=== PATIENT | male | born 1985 | race Caucasian/White ===

== ENCOUNTER 2019-10-30 20:09 | Emergency (ER) | payer SELFPAY ==
[~2019-10-30] VITALS: Ht 182.8 cm; Wt 77.1 kg
[2019-10-30] MEDS ORDERED: RX-ALBUTEROL INHALER (PROAIR) 8.5 GM IH ONE (20:30)
[2019-10-30] MEDS ORDERED: DEXAMETHASONE 10 MG/ML (DECADRON) 1 ML VIAL IM ONE (20:30)
--- NOTE | 2019-10-30 20:40 | ED EENT ---
History of Present Illness General Chief Complaint: Oral/Throat Problems Stated Complaint: THROAT PAIN, AMMONIA EXPOSURE, SOB Nursing Triage Note: pt amb to rm 10 with complaint of sore throat after being exposed to "ammonia like smell" when changing a cat litter box. states this occured two days ago and has had a sore throat and difficulty eating since. states he has been taking amoxicillin for broken teeth. History of Present Illness Date Seen by Provider: Oct 30, 2019 Time Seen by Provider: 20:20 Initial Comments 34 -year-old male reports that he was assisting his children in emptying litter box when he became short of breath from inhaling the ammonia smell at 1500. He reports that there was a lot dry, hard litter from urine in the bottom. He was in his living room when this occurred. He denies any fever or shortness of air at this time he is not coughing. He states his throat is still irritated, but he can swallow and breath without difficulty. Requesting work note. Timing/Duration: abrupt Prearrival Treatment: no prearrival treatment Associated Symptoms: denies symptoms Allergies and Home Medications Allergies Coded Allergies: No Known Drug Allergies (Unverified , 10/30/19) Patient Home Medication List Home Medication List Reviewed: Yes Review of Systems Review of Systems Constitutional: no symptoms reported, see HPI Throat: see HPI, other Respiratory: see HPI (irritation), cough (nonproductive); No short of breath All Other Systems Reviewed Negative Unless Noted: Yes Past Himjqbt-Sfgelv-Dkcrki Hx Past Med/Social Hx: Reviewed Nursing Past Med/Soc Hx Patient Social History Alcohol Use: Occasionally Uses Recreational Drug Use: No Smoking Status: Former Smoker Type Used: Cigarettes, Smokeless Tobacco Recent Foreign Travel: No Contact w/Someone Who Travel: No Recent Infectious Disease Expo: No Recent Hopitalizations: No Immunizations Up To Date Tetanus Booster (TDap): Unknown PED Vaccines UTD: Yes Seasonal Allergies Seasonal Allergies: No Past Medical History Surgeries: Yes Respiratory: No Cardiac: No Neurological: No Genitourinary: No Gastrointestinal: No Musculoskeletal: No Endocrine: No HEENT: No Cancer: No Psychosocial: No Integumentary: No Blood Disorders: No Physical Exam Vital Signs Vital Signs - First Documented 10/30/19 20:14 Temp 36.8 Pulse 87 Resp 16 B/P (MAP) 119/75 (90) Pulse Ox 98 O2 Delivery Room Air Height, Weight, BMI Height: '" Weight: lbs. oz. kg; 23.00 BMI Method: General Appearance: WD/WN, no apparent distress Eyes: bilateral eye normal inspection, bilateral eye PERRL, bilateral eye EOMI Ears: bilateral ear auricle normal, bilateral ear canal normal, bilateral ear TM normal Nose: normal inspection; No discharge Mouth/Throat: normal mouth inspection, pharynx normal Neck: non-tender, full range of motion, supple, normal inspection Cardiovascular: normal peripheral pulses, regular rate, rhythm Respiratory: chest non-tender, lungs clear, normal breath sounds Neurologic/Psychiatric: no motor/sensory deficits, alert, normal mood/affect, oriented x 3 Progress/Results/Core Measures Results/Orders My Orders Orders - PRABHJOT MCKINNEY Rx-Albuterol Inhaler (Rx-Proair) (10/30/19 20:30) Dexamethasone Injection (Decadron Inject (10/30/19 20:30) Medications Given in ED Current Medications Medications Dose Ordered Sig/Holly Route Start Time Stop Time Status Last Admin Dose Admin Albuterol Sulfate 1 gm ONCE ONCE IH 10/30/19 20:30 10/30/19 20:31 DC 10/30/19 20:37 1 GM Dexamethasone Sodium Phosphate 10 mg ONCE ONCE IM 10/30/19 20:30 10/30/19 20:31 DC 10/30/19 20:37 10 MG Vital Signs/I&O 10/30/19 20:14 Temp 36.8 Pulse 87 Resp 16 B/P (MAP) 119/75 (90) Pulse Ox 98 O2 Delivery Room Air Blood Pressure Mean: 90 Departure Impression Primary Impression: Throat irritation Disposition: 01 HOME, SELF-CARE Condition: Improved Departure-Patient Inst. Decision time for Depature: 20:30 Referrals: [facility] [place] NO,LOCAL PHYSICIAN (PCP) Primary Care Physician Patient Instructions: Sore Throat, Adult (DC) Add. Discharge Instructions: Use inhaler 2 puffs every 4 hours. Rinse throat and mouth with warm water and salt every 2-3 hours. Empty the litter box outside or with windows open. Follow-up with your primary care provider if symptoms are not improving or worsen. Return to emergency department for new, urgent health care needs. All discharge instructions reviewed with patient and/or family. Voiced understanding. PRABHJOT MCKINNEY Oct 30, 2019 20:40
[2019-10-30 20:45] VITALS: BP 119/75
== END 2019-10-30 20:45 | disposition home or self-care (01) ==
LOC: ER 20:12
DX: J39.2 Other diseases of pharynx (principal); Z87.891 Personal history of nicotine dependence
CPT/HCPCS: 96372; 99284

== ENCOUNTER 2021-03-10 09:59 | Emergency (ER) | payer SELFPAY ==
[~2021-03-10] VITALS: Ht 180 cm; Wt 72.5 kg
--- NOTE | 2021-03-10 10:30 | ED Abdominal Pain ---
General Chief Complaint: General Problems/Pain Stated Complaint: RLQ PAIN Nursing Triage Note: Pt ambulatory to triage with visitor. Pt reports having anxiety for the past 4 days, intermittent, reports hands currently clammy. Pt reports having muscle pain, describes as numbness and tingling to RUQ area. Pt denies n/v/d or other GI symptoms. Pt reports hx of anxiety, was on meds approx 10 years ago. Source of Information: Patient Exam Limitations: No Limitations (THONY NARANJO) History of Present Illness Date Seen by Provider: Mar 10, 2021 Time Seen by Provider: 10:10 Initial Comments Pt presents to ED via private conveyance with complaint of abd pain. He states t hat the pain began 2 days ago at work, sitting, with no inciting factors. He localizes it to his RUQ, denies radiation, and describes it as numb/tingling, denies prior occurrence of similar pain. Denies N/V, SOB, chest pain. Last BM today prior to arrival without issues. Denies hematuria, dysuria. Timing/Duration: 1-2 Days Severity/Quality: Mild, Other (pt describes pain as numb/tingling) Location: RUQ Radiation: No Radiation Activities at Onset: Other (sitting at work) Modifying Factors: Improves With Palpation Associated Symptoms: No Back Pain, No Chest Pain, No Fever/Chills, No Headache, No Heartburn, No Nausea/Vomiting, No Shortness of Air (THONY NARANJO STUDENT) Allergies and Home Medications Allergies Coded Allergies: No Known Drug Allergies (Unverified , 10/30/19) Patient Home Medication List Home Medication List Reviewed: Yes (THONY NARANJO) Review of Systems Review of Systems Constitutional: No chills, No fever Respiratory: Denies Cough, Denies Shortness of Air Cardiovascular: Denies Chest Pain, Denies Edema, Denies Lightheadedness Gastrointestinal: Denies Abdomen Distended; Abdominal Pain (RUQ); Denies Blood Streaked Stools, Denies Constipated, Denies Diarrhea, Denies Nausea Genitourinary: Denies Burning, Denies Frequency, Denies Flank Pain, Denies Hematuria Musculoskeletal: No back pain, No joint pain Skin: No change in color, No change in hair/nails Psychiatric/Neurological: Denies Headache; Numbness (RUQ), Tingling (RUQ) (THONY NARANJO) All Other Systems Reviewed Negative Unless Noted: Yes (THONY NARANJO) Past Otsqwqg-Jydphp-Pzbphf Hx Patient Social History Tobacco Use?: Yes Substance use?: Yes Substance type: Marijuana Alcohol Use?: No Pt feels they are or have been: No (THONY NARANJO) Immunizations Up To Date Tetanus Booster (TDap): Unknown PED Vaccines UTD: Yes (THONY NARANJO) Seasonal Allergies Seasonal Allergies: No (THONY NARANJO) Past Medical History Surgeries: Yes Respiratory: No Cardiac: No Neurological: No Genitourinary: No Gastrointestinal: No Musculoskeletal: No Endocrine: No HEENT: No Cancer: No Psychosocial: No Integumentary: No Blood Disorders: No (THONY NARANJO) Physical Exam Vital Signs Vital Signs - First Documented 03/10/21 10:04 Temp 36.1 Pulse 81 Resp 20 B/P (MAP) 137/90 (106) Pulse Ox 99 O2 Delivery Room Air (JOSÉ ORTEGA) Vital Signs Capillary Refill : Less Than 3 Seconds (THONY NARANJO) Height/Weight/BMI Height: '" Weight: lbs. oz. kg; 22.00 BMI Method: General Appearance: WD/WN, no apparent distress HEENT: PERRL/EOMI, normal ENT inspection, pharynx normal Neck: non-tender, full range of motion, supple, normal inspection Respiratory: chest non-tender, lungs clear, normal breath sounds, no respirator y distress, no accessory muscle use Cardiovascular: normal peripheral pulses, regular rate, rhythm, no edema, no murmur Peripheral Pulses: 2+ Dorsalis Pedis (R), 2+ Left Dors-Pedis (L), 2+ Radial Pulses (R), 2+ Radial Pulses (L) Gastrointestinal: normal bowel sounds, soft; No distended, No guarding, No rebound; tenderness (mild tenderness to palpation RUQ, negative [place] sign/rebound tenderness/heel-strike) Rectal: deferred Extremities: normal range of motion, non-tender, normal inspection, normal capillary refill Back: normal inspection, no CVA tenderness, no vertebral tenderness Neurologic/Psychiatric: no motor/sensory deficits, alert, normal mood/affect, oriented x 3 Skin: normal color, warm/dry, diaphoresis (hands) Lymphatic: no adenopathy (THONY NARANJO MED STUDENT) Progress/Results/Core Measures Results/Orders Lab Results Laboratory Tests Test 03/10/21 10:25 03/10/21 11:14 Range/Units White Blood Count 4.4 4.3-11.0 10^3/uL Red Blood Count 5.39 4.30-5.52 10^6/uL Hemoglobin 15.9 13.3-17.7 g/dL Hematocrit 47 40-54 % Mean Corpuscular Volume 87 80-99 fL Mean Corpuscular Hemoglobin 30 25-34 pg Mean Corpuscular Hemoglobin Concent 34 32-36 g/dL Red Cell Distribution Width 11.8 10.0-14.5 % Platelet Count 327 130-400 10^3/uL Mean Platelet Volume 9.3 9.0-12.2 fL Immature Granulocyte % (Auto) 0 % Neutrophils (%) (Auto) 50 42-75 % Lymphocytes (%) (Auto) 38 12-44 % Monocytes (%) (Auto) 10 0-12 % Eosinophils (%) (Auto) 1 0-10 % Basophils (%) (Auto) 1 0-10 % Neutrophils # (Auto) 2.2 1.8-7.8 10^3/uL Lymphocytes # (Auto) 1.7 1.0-4.0 10^3/uL Monocytes # (Auto) 0.5 0.0-1.0 10^3/uL Eosinophils # (Auto) 0.0 0.0-0.3 10^3/uL Basophils # (Auto) 0.0 0.0-0.1 10^3/uL Immature Granulocyte # (Auto) 0.0 0.0-0.1 10^3/uL Sodium Level 138 135-145 MMOL/L Potassium Level 4.1 3.6-5.0 MMOL/L Chloride Level 103 98-107 MMOL/L Carbon Dioxide Level 26 21-32 MMOL/L Anion Gap 9 5-14 MMOL/L Blood Urea Nitrogen 8 7-18 MG/DL Creatinine 1.06 0.60-1.30 MG/DL Estimat Glomerular Filtration Rate 80 BUN/Creatinine Ratio 8 Glucose Level 95 70-105 MG/DL Calcium Level 9.7 8.5-10.1 MG/DL Corrected Calcium 9.3 8.5-10.1 MG/DL Total Bilirubin 1.1 H 0.1-1.0 MG/DL Aspartate Amino Transf (AST/SGOT) 14 5-34 U/L Alanine Aminotransferase (ALT/SGPT) 8 0-55 U/L Alkaline Phosphatase 110 40-136 U/L C-Reactive Protein High Sensitivity 0.04 0.00-0.50 MG/DL Total Protein 7.5 6.4-8.2 GM/DL Albumin 4.5 3.2-4.5 GM/DL Lipase 26 8-78 U/L Urine Color YELLOW Urine Clarity CLEAR Urine pH 6.0 5-9 Urine Specific [place] 1.020 1.016-1.022 Urine Protein NEGATIVE NEGATIVE Urine Glucose (UA) NEGATIVE NEGATIVE Urine Ketones 1+ H NEGATIVE Urine Nitrite NEGATIVE NEGATIVE Urine Bilirubin NEGATIVE NEGATIVE Urine Urobilinogen 0.2 < = 1.0 MG/DL Urine Leukocyte Esterase NEGATIVE NEGATIVE Urine RBC (Auto) NEGATIVE NEGATIVE Urine RBC NONE /HPF Urine WBC RARE /HPF Urine Squamous Epithelial Cells RARE /HPF Urine Crystals NONE /LPF Urine Bacteria NEGATIVE /HPF Urine Casts NONE /LPF Urine Mucus SMALL H /LPF Urine Culture Indicated NO (JOSÉ ORTEGA) My Orders Orders - JOSÉ ORTEGA Cbc With Automated Diff (03/10/21 10:23) Comprehensive Metabolic Panel (03/10/21 10:23) Hs C Reactive Protein (03/10/21 10:23) Lipase (03/10/21 10:23) Ua Culture If Indicated (03/10/21 10:23) (JOSÉ ORTEGA) Vital Signs/I&O 03/10/21 10:04 Temp 36.1 Pulse 81 Resp 20 B/P (MAP) 137/90 (106) Pulse Ox 99 O2 Delivery Room Air (JOÉS ORTEGA) Blood Pressure Mean: 106 Progress Progress Note : Time: 11:46 Progress Note I attest that I saw this patient alongside the medical student and agree with his documented history, physical exam and review of systems except as otherwise noted. The patient's not having any pain right now so we have suggested NSAIDs or antacids if it returns. His vital signs and clinical exam are completely unremarkable. He does have some reproduction of his symptoms with direct palpation of the abdominal wall muscles so a musculoskeletal is suspected. If his symptoms persist then will recommend he see a primary care doctor and set up an ultrasound of his gallbladder. (JOSÉ ORTEGA) Departure Impression Primary Impression: Abdominal wall pain in right upper quadrant Additional Impression: Generalized anxiety disorder Disposition: 01 HOME, SELF-CARE Condition: Stable Departure-Patient Inst. Decision time for Depature: 11:47 (JOSÉ ORTEGA) Referrals: NO,LOCAL PHYSICIAN (PCP/Family) Primary Care Physician Patient Instructions: Abdominal Pain, Adult ED, LOCAL PHYSICIAN LIST Add. Discharge Instructions: We could not detect anything dangerous today however if your symptoms persist or worsen and are accompanied with things such as fever, intractable vomiting, diarrhea or other worrisome symptoms then I would encourage you to follow-up with a primary care doctor for more work-up. Call to establish care in the next 2 to 4 weeks. If your symptoms are intractable or worsening then you may also return to the nearest ER for further evaluation. If your pain returns I suggest Mylanta, Maalox, Tums, Rolaids or other similar antacid in addition to an NSAID such as ibuprofen or Aleve. All discharge instructions reviewed with patient and/or family. Voiced understanding. Work/School Note: Work Release Form Date Seen in the Emergency Department: Mar 10, 2021 Return to Work: Mar 11, 2021 Restrictions: No Restrictions THONY NARANJO MED STUDENT Mar 10, 2021 10:30 JOSÉ ORTEGA Mar 10, 2021 11:49
[2021-03-10 10:45] LABS: BASOPHILS % (AUTO) 1 % (0-10); EOSINOPHILS % (AUTO) 1 % (0-10); HEMATOCRIT 47 % (40-54); HEMOGLOBIN 15.9 g/dL (13.3-17.7); LYMPHOCYTES # (AUTO) 1.7 10^3/uL (1.0-4.0); LYMPHOCYTES % (AUTO) 38 % (12-44); MEAN CORPUSCULAR HEMOGLOBIN 30 pg (25-34); MEAN CORPUSCULAR HGB CONC 34 g/dL (32-36); MEAN CORPUSCULAR VOLUME 87 fL (80-99); MEAN PLATELET VOLUME 9.3 fL (9.0-12.2); MONOCYTES # (AUTO) 0.5 10^3/uL (0.0-1.0); MONOCYTES % (AUTO) 10 % (0-12); NEUTROPHILS # (AUTO) 2.2 10^3/uL (1.8-7.8); NEUTROPHILS % (AUTO) 50 % (42-75); PLATELET COUNT 327 10^3/uL (130-400); WHITE BLOOD COUNT 4.4 10^3/uL (4.3-11.0)
[2021-03-10 10:53] LABS: ALBUMIN 4.5 GM/DL (3.2-4.5); POTASSIUM 4.1 MMOL/L (3.6-5.0)
[2021-03-10 10:54] LABS: CALCIUM 9.7 MG/DL (8.5-10.1)
[2021-03-10 10:55] LABS: TOTAL PROTEIN 7.5 GM/DL (6.4-8.2)
[2021-03-10 10:57] LABS: BILIRUBIN,TOTAL 1.1 MG/DL (0.1-1.0)
[2021-03-10 10:59] LABS: CREATININE SERUM 1.06 MG/DL (0.60-1.30)
[2021-03-10 11:21] LABS: BILIRUBIN,URINE NEGATIVE (NEGATIVE); CLARITY,URINE CLEAR; COLOR,URINE YELLOW; GLUCOSE, URINE (UA) NEGATIVE (NEGATIVE); KETONES,URINE 1+ (NEGATIVE); LEUKOCYTE ESTERASE ,URINE NEGATIVE (NEGATIVE); NITRITE,URINE NEGATIVE (NEGATIVE); PROTEIN,URINE NEGATIVE (NEGATIVE)
[2021-03-10 11:41] LABS: BACTERIA,URINE NEGATIVE /HPF; SQUAMOUS EPITHELIAL CELL,UR RARE /HPF; WBC,URINE RARE /HPF
[2021-03-10 11:55] VITALS: BP 129/72
== END 2021-03-10 11:55 | disposition home or self-care (01) ==
LOC: EDUNIT# 09:59 → ER 10:00
DX: R10.11 Right upper quadrant pain (principal); F41.1 Generalized anxiety disorder
CPT/HCPCS: 36415; 80053; 81000; 83690; 85025; 86141; 99282

== ENCOUNTER 2021-03-12 17:35 | Emergency (ER) | payer SELFPAY ==
[~2021-03-12] VITALS: Ht 182 cm; Wt 72.0 kg
--- NOTE | 2021-03-12 19:38 | ED Back Pain ---
General Chief Complaint: Back Problems Stated Complaint: BACK PAIN Nursing Triage Note: Pt c/o lower back pain starting today Source of Information: Patient Exam Limitations: No Limitations History of Present Illness Date Seen by Provider: Mar 12, 2021 Time Seen by Provider: 19:36 Initial Comments to ER with reports of midline low back pain that began today after lifting to move some groceries. Was seen here 2 days ago for right upper abdominal wall pain with normal labs no imaging. Today he also has some left lateral upper abdominal pain. Location: Other Timing/Duration: 1-2 Days Severity: Moderate Method of Injury: Unknown Associated Symptoms: denies symptoms, lower back pain Allergies and Home Medications Allergies Coded Allergies: No Known Drug Allergies (Unverified , 10/30/19) Patient Home Medication List Home Medication List Reviewed: Yes Review of Systems Constitutional: see HPI EENTM: see HPI Respiratory: no symptoms reported Cardiovascular: no symptoms reported Genitourinary: no symptoms reported Musculoskeletal: see HPI Skin: no symptoms reported Psychiatric/Neurological: No Symptoms Reported Past Akdeqpb-Hlupup-Kfylph Hx Immunizations Up To Date Tetanus Booster (TDap): Unknown PED Vaccines UTD: Yes Seasonal Allergies Seasonal Allergies: No Past Medical History Surgeries: Yes Respiratory: No Cardiac: No Neurological: No Genitourinary: No Gastrointestinal: No Musculoskeletal: No Endocrine: No HEENT: No Cancer: No Psychosocial: No Integumentary: No Blood Disorders: No Physical Exam Vital Signs Vital Signs - First Documented 03/12/21 18:53 Temp 37.0 Pulse 86 Resp 18 B/P (MAP) 125/86 (99) Pulse Ox 98 O2 Delivery Room Air Capillary Refill : Less Than 3 Seconds Height, Weight, BMI Height: '" Weight: lbs. oz. kg; 21.00 BMI Method: General Appearance: No Apparent Distress, WD/WN Neck: Full Range of Motion, Normal Inspection Cardiovascular: Regular Rate, Rhythm, Normal Peripheral Pulses Respiratory: Normal Breath Sounds, No Accessory Muscle Use, No Respiratory Distress Gastrointestinal: Normal Bowel Sounds, Non Tender, Soft Extremity: Normal Capillary Refill, Normal Inspection Neurologic/Psychiatric: Alert, Oriented x3 Skin: Normal Color, Warm/Dry Progress/Results/Core Measures Results/Orders My Orders Orders - KARLEE OAKES APRN Ct Abd/Pelvis Wo(Kidney Stone) (03/12/21 19:35) Vital Signs/I&O 03/12/21 18:53 Temp 37.0 Pulse 86 Resp 18 B/P (MAP) 125/86 (99) Pulse Ox 98 O2 Delivery Room Air Blood Pressure Mean: 99 Departure Communication (Admissions) 2030 he states that he has been popping one of his friends back. The friend is large. He also wrestles with his kids and and may have injured his ribs and back in doing so. He cannot recall any particular event that caused this. Impression Primary Impression: Upper abdominal pain Disposition: HOME, SELF-CARE Condition: Stable Departure-Patient Inst. Decision time for Depature: 20:23 Referrals: NO,LOCAL PHYSICIAN (PCP/Family) Primary Care Physician Patient Instructions: NO INSTRUCTIONS GIVEN Add. Discharge Instructions: . There is no emergent cause identified of your upper abdominal pain. Follow-u p with your primary care provider to further evaluate this. All discharge instructions reviewed with patient and/or family. Voiced understanding. Scripts Naproxen (Naprosyn) 500 Mg Tablet 500 MG PO BID PRN for PAIN-MODERATE (5-7), #30 TAB 0 Refills Prov: KARLEE OAKES APRN 03/12/21 KARLEE OAKES APRN Mar 12, 2021 19:38
--- NOTE | 2021-03-12 20:10 | Diagnostic Imaging Report ---
PROCEDURE: CT urinary tract, rule out kidney stone. TECHNIQUE: Multiple contiguous axial images were obtained through the abdomen and pelvis without the use of intravenous contrast. Auto Exposure Controls were utilized during the CT exam to meet ALARA standards for radiation dose reduction. INDICATION: Left left flank pain. The lung bases are clear. The liver appears normal. The gallbladder is decompressed. The pancreas appears normal. Spleen is not enlarged. Adrenals are normal. Kidneys appear normal. Small bowel is not dilated. There is some colonic diverticulosis but no evidence of diverticulitis. There is no intraperitoneal free air or free fluid. Urinary bladder and prostate are unremarkable. IMPRESSION: No acute abnormality is seen in the abdomen or pelvis. Dictated by: Dictated on workstation # [id number]
[2021-03-12] MEDS ORDERED: NAPR-1071 PO (20:31)
[2021-03-12] MEDS ORDERED: TRAM-42 PO (20:38)
[2021-03-12 23:31] VITALS: BP 125/86
== END 2021-03-12 23:31 | disposition home or self-care (01) ==
LOC: EDUNIT# 17:35 → ER 17:37
DX: R10.11 Right upper quadrant pain (principal)
CPT/HCPCS: 74176